=== PATIENT | male | born 1955 ===

== ENCOUNTER 2019-10-21 10:01 | Outpatient (CLI) | payer OTHER ==
[~2019-10-21 10:01] MED LIST: INTEGRA PLUS C1 EACH PO; MAXIMUM D3325 MCG PO; NORVASC2.5 M1 PO; Neurin-Sl Tablet Sl SL; PROTONIX40 MG PO; PYRIDOXINE HCL100 MG PO
== END 2019-10-21 10:06 | disposition home or self-care (01) ==
LOC: NUCLEAR 10:01
PROVIDERS: ATTEND Internal Medicine Hematology & Oncology
DX: C85.13 Unspecified B-cell lymphoma, intra-abdominal lymph nodes (principal); C85.16 Unspecified B-cell lymphoma, intrapelvic lymph nodes; D47.2 Monoclonal gammopathy; E83.52 Hypercalcemia; Z51.81 Encounter for therapeutic drug level monitoring

== ENCOUNTER 2019-10-27 07:49 | Emergency (ER) | payer OTHER ==
[~2019-10-27] VITALS: Ht 185.4 cm; Wt 70.8 kg
[2019-10-27] MEDS ORDERED: G-PREPROTEIN L473 ML (08:09)
[2019-10-27] MEDS ORDERED: MEGESTROL ACETA40 MG (08:09)
[2019-10-27] MEDS ORDERED: INTEGRA CAPSUL1 EACH (08:10)
== END 2019-10-27 16:54 | disposition home or self-care (01) ==
LOC: ER 07:49
DX: E86.0 Dehydration (principal); Z20.828 Contact with and (suspected) exposure to other viral communicable diseases